=== PATIENT | female | born 1970 | race Caucasian/White ===

== ENCOUNTER 2017-03-13 18:35 | Emergency (ER) | payer SELFPAY ==
[2017-03-13 20:49] LABS: microscopic required? YES; urine erythrocyte 1+ (NEGATIVE)
[2017-03-13 22:15] VITALS: BP 111/66
== END 2017-03-13 22:15 | disposition home or self-care (01) ==
LOC: ED 18:35
PROVIDERS: Emergency Medicine
DX: N39.0 Urinary tract infection, site not specified (principal); B37.3 Candidiasis of vulva and vagina; Z98.51 Tubal ligation status
CPT/HCPCS: J1885